=== PATIENT | female | born 1975 | race African-American/Black ===

== ENCOUNTER 2022-05-20 07:20 | Emergency (ER) | payer OTHER ==
[~2022-05-20] VITALS: Ht 167.6 cm; Wt 88.0 kg
[2022-05-20] VITALS (7 sets, daily range): BP systolic 113–140; BP diastolic 61–90
[2022-05-20 08:11] LABS: BASO% 0.2 % (0-3); EOS% 0.7 % (0-8); HEMATOCRIT 39.6 % (37.0-47.0); HEMOGLOBIN 13.5 g/dl (12.0-16.0); IMMATURE GRANULOCYTES 0.2 % (0.0-5.0); LYMPH% 28.6 % (15-41); MEAN CORPUSCULAR HGB CONC 34.1 g/dL CAL (32.0-36.0); MONO% 10.1 % (2-13); NEUT# 2.56 thou/uL (2.00-7.15); NEUT% 60.2 % (42-76); RED BLOOD COUNT 4.66 mill/uL (4.20-5.60); RED CELL DISTRI WIDTH 12.9 % (11.5-15.5)
[2022-05-20 08:27] LABS: ALKALINE PHOSPHATASE 47 u/l (38-126); ANION GAP 9 (6-22 (CALC)); BILIRUBIN, TOTAL 0.4 mg/dL (0.0-1.4); BUN 17 mg/dL (7-17); BUN/CREATININE RATIO 23 (12-20 (CALC)); CARBON DIOXIDE 27 mmol/l (22-30); CHLORIDE 106 mmol/l (95-108); CREATININE 0.8 mg/dL (0.5-1.0); GFR FOR AFR.AMER. > 60 ML/MIN (>=60 (CALC)); GFR OTHER RACES > 60 ML/MIN (>=60 (CALC)); LIPASE 171 u/l (23-300); POTASSIUM 4.1 mmol/l (3.5-5.1); SGOT/AST 39 u/l (14-36); SODIUM 138 mmol/l (137-146); TOTAL PROTEIN 6.8 g/dL (6.3-8.2)
== END 2022-05-20 11:58 | disposition home or self-care (01) | DRG 313 ==
LOC: ED 07:20
PROVIDERS: Family Medicine
DX: R07.89 Other chest pain (principal); R10.9 Unspecified abdominal pain